=== PATIENT | male | born 1995 | race Caucasian/White ===

== ENCOUNTER 2022-05-04 11:22 | Emergency (ER) | payer MEDICAID ==
[~2022-05-04] VITALS: Ht 175.3 cm; Wt 86.2 kg
[2022-05-04] MEDS ORDERED: ALBU8.5H8 INH (11:42)
[2022-05-04] MEDS ORDERED: ALBU18HF2 INH (12:37)
--- NOTE | 2022-05-04 12:42 | NUR ---
Patient discharged to home in stable condition. Written and verbal after care instructions given. Patient verbalizes understanding of instructions. Stressed follow up or return to ER for worsening s/s.
== END 2022-05-04 12:46 | disposition home or self-care (01) ==
LOC: ER 11:22
DX: J45.909 Unspecified asthma, uncomplicated (principal); Z76.0 Encounter for issue of repeat prescription
CPT/HCPCS: A4663